=== PATIENT | female | born 1960 | race Caucasian/White ===

== ENCOUNTER → 2016-09-16 | Outpatient (CLI) | payer OTHER ==
[2016-09-16 09:51] LABS: MEAN CORPUSCULAR HGB CONC 33.4 g/dL (31.0-37.0); MEAN PLATELET VOLUME 9.6 FL (6.0-9.5); PLATELET COUNT 328 10^3uL (150-450); WHITE BLOOD COUNT 8.42 10^3uL (4.0-11.0)
[2016-09-16 09:55] LABS: MEAN CORPUSCULAR HEMOGLOBIN 34.6 PG (26.0-34.0); MEAN CORPUSCULAR VOLUME 104 FL (80-100)
[2016-09-16 09:56] LABS: BAND NEUTROPHILS % 1 % (0-6); EOSINOPHILS % 1 % (0-4); MONOCYTES # 0.5 #; MONOCYTES % 6 % (3-11); RBC MORPH SEE REFERENCE (NORMAL); SEGMENTED NEUTROPHILS % 80 % (51-67); TOTAL CELLS COUNTED 100
[2016-09-16 10:53] LABS: ALBUMIN 3.9 g/dL (3.4-5.0); ANION GAP 11.3 MEQ/L (3-15); CALCULATED IONIZED CALCIUM 4.4 mg/dL (3.8-4.6)
== END ==
LOC: LAB 09:30
PROVIDERS: ATTEND Internal Medicine Rheumatology
DX: Z51.81 Encounter for therapeutic drug level monitoring (principal); Z79.01 Long term (current) use of anticoagulants; Z79.899 Other long term (current) drug therapy; M32.8 Other forms of systemic lupus erythematosus
CPT/HCPCS: 36415; 80053; 85007; 85027; 85610

== ENCOUNTER → 2016-09-19 | Outpatient (CLI) | payer OTHER | LOC: LAB 10:52 | DX: Z51.81 Encounter for therapeutic drug level monitoring (principal); Z79.01 Long term (current) use of anticoagulants; M32.10 Systemic lupus erythematosus, organ or system involvement unspecified; I73.9 Peripheral vascular disease, unspecified; Z79.899 Other long term (current) drug therapy; Z95.5 Presence of coronary angioplasty implant and graft | CPT/HCPCS: 36415; 85610 ==

== ENCOUNTER → 2016-09-22 | Outpatient (CLI) | payer OTHER | LOC: EMS 03:16 | DX: Z53.20 Procedure and treatment not carried out because of patient's decision for unspecified reasons (principal) ==

== ENCOUNTER → 2016-09-23 | Emergency (ER) | payer OTHER ==
[~2016-09-23] VITALS: Ht 167.6 cm; Wt 80.8 kg
[~2016-09-23] MED LIST: ALBUTEROL 0.5% NEB SOLUTION 2.5 MG/0.5 ML VIAL INH ONE; POTASSIUM CL IVPB 10 MEQ/100ML 100 ML IV ONE; SODIUM CHLORIDE 0.9% NEB SOLN 3 ML VIAL ONE; SODIUM CHLORIDE 250 ML IV SCH; SODIUM CHLORIDE 250 ML ONE; SODIUM CHLORIDE FLUSH 10 ML SYR IV PRN; SODIUM CHLORIDE FLUSH 3 ML SYR IV PRN
--- NOTE | 2016-09-23 12:45 | NUR ---
Patient report received from Triage Nurse and care of pt now assumed by this nurse.
[2016-09-23 12:58] VITALS: BP 117/63
[2016-09-23 13:23] LABS: BASOPHILS % (AUTO) 1 % (0-2); EOSINOPHILS # (AUTO) 0.1 10^3uL; EOSINOPHILS % (AUTO) 1 % (0-4); LYMPHOCYTES # (AUTO) 0.9 X10^3; MEAN CORPUSCULAR HEMOGLOBIN 33.3 PG (26.0-34.0); MEAN CORPUSCULAR HGB CONC 32.8 g/dL (31.0-37.0); MEAN CORPUSCULAR VOLUME 102 FL (80-100); MEAN PLATELET VOLUME 9.6 FL (6.0-9.5); MONOCYTES # (AUTO) 0.4 X10^3; MONOCYTES % (AUTO) 6 % (3-11); NEUTROPHILS # (AUTO) 5.1 X10^3; NEUTROPHILS % (AUTO) 77 % (51-67); PLATELET COUNT 242 10^3uL (150-450)
[2016-09-23 13:37] LABS: ALBUMIN 3.5 g/dL (3.4-5.0); ANION GAP 11.6 MEQ/L (3-15); CALCULATED IONIZED CALCIUM 4.1 mg/dL (3.8-4.6); TOTAL PROTEIN 6.7 g/dL (6.4-8.5)
[2016-09-23 14:47] LABS: INFLUENZA VIRUS TYPE A ANTIBOD Negative (NEGATIVE); INFLUENZA VIRUS TYPE B ANTIBOD Negative (NEGATIVE)
--- NOTE | 2016-09-23 15:19 | NUR ---
Pt requesting to stop potassium infusion.
--- NOTE | 2016-09-23 15:20 | NUR ---
Patient reports now that she has "stopped" the infusion - IV Pump settings have been cleared and nothing is infusing at this point. Patient says she doesn't want anymore IV fluid or medication.
[2016-09-23 15:28] LABS: BILIRUBIN,URINE Negative (Negative); CLARITY,URINE Clear; GLUCOSE, URINE (UA) Negative (Negative); LEUKOCYTE ESTERASE, URINE Negative (Negative)
[2016-09-23 15:36] LABS: COLOR,URINE Dark Yellow
[2016-09-23 15:37] LABS: RBC,URINE None Seen /HPF; URINE CENTRIFUGED VOLUME 12 mL
== END | disposition home or self-care (01) ==
LOC: ED 12:34
DX: R42 Dizziness and giddiness (principal); J40 Bronchitis, not specified as acute or chronic; B34.9 Viral infection, unspecified; E87.6 Hypokalemia
CPT/HCPCS: 36415; 71020; 80053; 81003; 81015; 85025; 86140; 87040; 87502; 94640; 96361; 96365; 99284; J3480; J7030; J7050; 99283